=== PATIENT | male | born 1955 | race African-American/Black ===

== ENCOUNTER 2021-06-05 14:54 | Inpatient (IN) | payer MEDICAID ==
[~2021-06-05] VITALS: Ht 167.6 cm; Wt 47.5 kg
[2021-06-05 15:31] LABS: GLUCOMETER DEV NAME(LOC) ERT.5; GLUCOSE,POINT OF CARE 470 MG/DL (70-110)
[2021-06-05 16:16] LABS: BASOPHILS % (AUTO) 0.2 % (0.0-2.0); EOSINOPHILS % (AUTO) 0 % (1.0-6.0); HEMATOCRIT 38.8 % (41-53); HEMOGLOBIN 13.2 g/dL (13.5-17.5); LYMPHOCYTES # (AUTO) 0.2 K/uL (1.0-4.8); LYMPHOCYTES % (AUTO) 2.3 % (22.0-44.0); MEAN CORPUSCULAR HEMOGLOBIN 31.9 pg (26.0-34.0); MEAN CORPUSCULAR VOLUME 94 fL (80-100); MONOCYTES # (AUTO) 0.3 K/uL (0.1-1.0); MONOCYTES % (AUTO) 3.3 % (2.0-9.0); NEUTROPHILS # (AUTO) 7.3 K/uL (1.8-7.7); PLATELET COUNT (AUTO) 258 K/uL (150-450); RED BLOOD CELL COUNT(AUTO) 4.14 MIL/uL (4.50-5.90); RED CELL DISTRIBUTION WIDTH 12.9 % (11.5-14.5)
[2021-06-05 16:29] LABS: NEUTROPHILS % (AUTO) 94.2 % (40.0-70.0)
[2021-06-05] MEDS ORDERED: SODIUM CHLORIDE 0.9% 1,350 ML IV ONE (16:30)
[2021-06-05] MEDS ORDERED: ACETAMINOPHEN 325 MG TABLET PO ONE (16:30)
[2021-06-05 16:36] LABS: GLUCOMETER DEV NAME(LOC) ERT.5; GLUCOSE,POINT OF CARE 414 MG/DL (70-110)
[2021-06-05 16:37] LABS: COVID AG,FIA SOURCE NASAL SWAB
[2021-06-05 16:41] LABS: ALANINE AMINOTRANSFERASE 105 U/L (12-78); ALBUMIN 2.6 g/dL (3.4-5.0); ALKALINE PHOSPHATASE 130 U/L (46-116); ANION GAP 11 mmol/L (8-16); ASPARTATE AMINOTRANSFERASE 193 U/L (15-37); BILIRUBIN,TOTAL 1.1 mg/dL (0.1-1.0); CALCIUM, TOTAL 8.6 mg/dL (8.8-10.5); CARBON DIOXIDE 27 mmol/L (22-29); CHLORIDE 92 mmol/L (98-107); CREATININE 1.02 mg/dL (0.60-1.30); GLOMERULAR FILTR. RATE CALC > 60 mL/min (>60); POTASSIUM 3.5 mmol/L (3.5-5.1); SODIUM SERUM 130 mmol/L (136-145); TOTAL PROTEIN, SERUM 7.3 g/dL (6.4-8.2); UREA NITROGEN, BLOOD 22 mg/dL (7-18)
[2021-06-05 16:43] LABS: GLUCOSE,RANDOM 472 mg/dL (70-110)
[2021-06-05 16:43] LABS: APPEARANCE,URINE CLEAR (CLEAR); BILIRUBIN,URINE NEGATIVE (NEGATIVE); GLUCOSE, URINE (UA) >=1000 mg/dL (NEGATIVE); KETONES,URINE 40 mg/dL (NEGATIVE); LEUKOCYTE ESTERASE ,URINE NEGATIVE (NEGATIVE); NITRATE,URINE NEGATIVE (NEGATIVE); OCCULT BLOOD,URINE TRACE (NEGATIVE); PROTEIN,URINE POS 1+ (NEGATIVE)
[2021-06-05 17:05] LABS: LACTIC ACID 2.2 mmol/L (0.4-2.0)
[2021-06-05] MEDS ORDERED: INSULIN REGULAR, HUMAN 100 UNITS/ML IVP ONE ×2 (18:00→19:30)
[2021-06-05 18:11] LABS: GLUCOSE,POINT OF CARE 420 MG/DL (70-110)
[2021-06-05 19:06] LABS: GLUCOMETER DEV NAME(LOC) ERT.5; GLUCOSE,POINT OF CARE 369 MG/DL (70-110)
[2021-06-05] MEDS ORDERED: CefTRIAXone 1 GM/DEXTROSE 50 ML IV ONE (19:30)
[2021-06-05] MEDS ORDERED: DOXYCYCLINE HYCLATE 100 MG in DEXTROSE 5%-WATER 100 ML IV ONE (19:30)
[2021-06-05 19:32] LABS: INFLUENZA TYPE A NEGATIVE FOR TYPE A (NEGATIVE); INFLUENZA TYPE B NEGATIVE FOR TYPE B (NEGATIVE)
[2021-06-05 20:00] LABS: BACTERIA,URINE None Seen /HPF (None Seen); RBC,URINE 0-2 /HPF (0-2)
[2021-06-05] MEDS ORDERED: ALBUTEROL SULFATE HFA 90 MCG/PUFF 8 GM INHALER IH PRN (20:15)
[2021-06-05] MEDS ORDERED: BENZONATATE 100 MG CAPSULE PO PRN (20:15)
[2021-06-05] MEDS ORDERED: DEXTROSE 50%-WATER 25 GM/50 ML SYRINGE IVP PRN (20:15)
[2021-06-05] MEDS ORDERED: SODIUM CHLORIDE 0.9% 1,000 ML IV ONE (20:15)
[2021-06-05] MEDS ORDERED: ONDANSETRON HCL 4 MG/2 ML VIAL IVP PRN (20:30)
[2021-06-05] MEDS ORDERED: OxyCODONE HCL/ACETAMINOPHEN 5-325 MG TABLET PO PRN (20:30)
[2021-06-05 20:40] LABS: C-REACTIVE PROTEIN QUANT 14.41 mg/dL (0.00-0.30)
[2021-06-05 20:45] LABS: GLUCOMETER DEV NAME(LOC) ERT.5; GLUCOSE,POINT OF CARE 334 MG/DL (70-110)
[2021-06-05] MEDS: INSULIN GLARGINE,HUM.REC.ANLOG 100 UNITS/ML SQ SCH (22:14)
[2021-06-05] MEDS: INSULIN LISPRO 100 UNITS/ML SQ PRN (22:14)
[2021-06-05] MEDS: DOCUSATE SODIUM 100 MG CAPSULE PO SCH (22:21)
[2021-06-06] MEDS: HEPARIN SODIUM,PORCINE 5,000 UNITS/ML VIAL SQ SCH ×3 (00:01→17:00)
[2021-06-06] MEDS: PIPERACILLIN/TAZO 3.375 GM/D5W 50 ML IV SCH ×4 (00:01→21:31)
[2021-06-06 05:16] LABS: GLUCOMETER DEV NAME(LOC) ERT.5; GLUCOSE,POINT OF CARE 63 MG/DL (70-110)
[2021-06-06 06:21] LABS: GLUCOMETER DEV NAME(LOC) ERT.5; GLUCOSE,POINT OF CARE 177 MG/DL (70-110)
[2021-06-06 06:52] LABS: ALANINE AMINOTRANSFERASE 89 U/L (12-78); ALKALINE PHOSPHATASE 106 U/L (46-116); ANION GAP 9 mmol/L (8-16); ASPARTATE AMINOTRANSFERASE 120 U/L (15-37); BILIRUBIN,TOTAL 0.4 mg/dL (0.1-1.0); CALCIUM, TOTAL 7.7 mg/dL (8.8-10.5); CARBON DIOXIDE 30 mmol/L (22-29); CHLORIDE 103 mmol/L (98-107); GLOMERULAR FILTR. RATE CALC > 60 mL/min (>60); GLUCOSE,RANDOM 161 mg/dL (70-110); SODIUM SERUM 142 mmol/L (136-145); UREA NITROGEN, BLOOD 14 mg/dL (7-18)
[2021-06-06 06:54] LABS: POTASSIUM 2.9 mmol/L (3.5-5.1)
[2021-06-06] MEDS ORDERED: POTASSIUM CHLORIDE 10% 40 MEQ/30 ML LIQUID UDCUP PO PRN ×2 (07:15)
[2021-06-06] MEDS ORDERED: POTASSIUM CHL 10 MEQ/WATER 50 ML IV PRN ×2 (07:15→11:15)
[2021-06-06] MEDS ORDERED: POTASSIUM CHLORIDE 20 MEQ ER TABLET PO PRN ×3 (07:15→11:15)
[2021-06-06] MEDS: POTASSIUM CHL 10 MEQ/WATER 50 ML IV PRN ×4 (07:57→11:08)
[2021-06-06 08:01] LABS: GLUCOMETER DEV NAME(LOC) ERT.5; GLUCOSE,POINT OF CARE 171 MG/DL (70-110)
[2021-06-06] MEDS: FAMOTIDINE 20 MG TABLET PO SCH (08:50)
[2021-06-06] MEDS: DOCUSATE SODIUM 100 MG CAPSULE PO SCH ×2 (08:50→19:09)
[2021-06-06] MEDS: MULTIVITAMINS WITH MINERALS, THERAPEUTIC TABLET PO SCH (08:51)
[2021-06-06 12:12] LABS: GLUCOSE,POINT OF CARE 195 MG/DL (70-110)
[2021-06-06] MEDS: INSULIN LISPRO 100 UNITS/ML SQ PRN (17:09)
[2021-06-06 17:28] VITALS: BP 142/89
[2021-06-06] MEDS ORDERED: PNEUMOCOCCAL VACCINE POLYVALENT 0.5 ML VIAL [PPSV23] IM. ONE (18:15)
[2021-06-06] MEDS ORDERED: INFLUENZA VIRUS VACCINE QVS 2021-22 (6MO+)/PF 60 MCG/0.5 ML SYRINGE IM. ONE (18:15)
[2021-06-06 20:22] LABS: GLUCOMETER DEV NAME(LOC) 5N.1C; GLUCOSE,POINT OF CARE 250 MG/DL (70-110)
[2021-06-06 20:45] VITALS: BP 165/87
[2021-06-06] MEDS: ACETAMINOPHEN 325 MG TABLET PO PRN (21:31)
[2021-06-06] MEDS: INSULIN GLARGINE,HUM.REC.ANLOG 100 UNITS/ML SQ SCH (21:34)
[2021-06-06 23:31] LABS: GLUCOMETER DEV NAME(LOC) 5S.1; GLUCOSE,POINT OF CARE 117 MG/DL (70-110)
[2021-06-07] MEDS: PIPERACILLIN/TAZO 3.375 GM/D5W 50 ML IV SCH ×4 (02:57→22:06)
[2021-06-07 04:38] VITALS: BP 157/81
[2021-06-07 06:41] LABS: GLUCOMETER DEV NAME(LOC) 5N.1C; GLUCOSE,POINT OF CARE 94 MG/DL (70-110)
[2021-06-07 07:28] VITALS: BP 154/82
[2021-06-07] MEDS: HEPARIN SODIUM,PORCINE 5,000 UNITS/ML VIAL SQ SCH ×5 (08:00→23:45)
[2021-06-07] MEDS: MULTIVITAMINS WITH MINERALS, THERAPEUTIC TABLET PO SCH (08:01)
[2021-06-07] MEDS: FAMOTIDINE 20 MG TABLET PO SCH (08:01)
[2021-06-07] MEDS: DOCUSATE SODIUM 100 MG CAPSULE PO SCH ×2 (08:03→21:00)
[2021-06-07 11:33] VITALS: BP 148/82
[2021-06-07] MEDS: INSULIN LISPRO 100 UNITS/ML SQ PRN ×2 (13:36→22:09)
[2021-06-07 15:02] VITALS: BP 173/72
[2021-06-07 15:41] LABS: GLUCOMETER DEV NAME(LOC) 5S.1; GLUCOSE,POINT OF CARE 371 MG/DL (70-110)
[2021-06-07 17:11] LABS: GLUCOMETER DEV NAME(LOC) 5S.1; GLUCOSE,POINT OF CARE 100 MG/DL (70-110)
[2021-06-07 20:42] VITALS: BP 146/80
[2021-06-07] MEDS: INSULIN GLARGINE,HUM.REC.ANLOG 100 UNITS/ML SQ SCH (22:10)
[2021-06-07 22:36] LABS: GLUCOMETER DEV NAME(LOC) 5S.1; GLUCOSE,POINT OF CARE 195 MG/DL (70-110)
[2021-06-07] MEDS: ACETAMINOPHEN 325 MG TABLET PO PRN (23:47)
[2021-06-08 00:20] VITALS: BP 165/80
[2021-06-08] MEDS: PIPERACILLIN/TAZO 3.375 GM/D5W 50 ML IV SCH ×4 (03:06→21:47)
[2021-06-08 04:38] VITALS: BP 145/80
[2021-06-08 07:50] VITALS: BP 142/70
[2021-06-08] MEDS: MULTIVITAMINS WITH MINERALS, THERAPEUTIC TABLET PO SCH (08:54)
[2021-06-08] MEDS: HEPARIN SODIUM,PORCINE 5,000 UNITS/ML VIAL SQ SCH ×2 (08:54→16:48)
[2021-06-08] MEDS: DOCUSATE SODIUM 100 MG CAPSULE PO SCH ×2 (08:54→21:47)
[2021-06-08] MEDS: FAMOTIDINE 20 MG TABLET PO SCH (08:54)
[2021-06-08] MEDS: INSULIN GLARGINE,HUM.REC.ANLOG 100 UNITS/ML SQ SCH ×2 (08:55→21:48)
[2021-06-08 11:19] VITALS: BP 152/76
[2021-06-08] MEDS: INSULIN LISPRO 100 UNITS/ML SQ PRN ×2 (12:23→17:59)
[2021-06-08 15:42] VITALS: BP 148/82
[2021-06-08 21:01] LABS: GLUCOMETER DEV NAME(LOC) 5S.2B; GLUCOSE,POINT OF CARE 174 MG/DL (70-110)
[2021-06-08 21:01] LABS: GLUCOMETER DEV NAME(LOC) 5S.2B; GLUCOSE,POINT OF CARE 212 MG/DL (70-110)
[2021-06-08 21:01] LABS: GLUCOMETER DEV NAME(LOC) 5S.2B; GLUCOSE,POINT OF CARE 79 MG/DL (70-110)
[2021-06-08 21:41] LABS: GLUCOMETER DEV NAME(LOC) 5S.1; GLUCOSE,POINT OF CARE 118 MG/DL (70-110)
[2021-06-09 00:23] VITALS: BP 146/81
[2021-06-09] MEDS: PIPERACILLIN/TAZO 3.375 GM/D5W 50 ML IV SCH ×3 (01:16→13:46)
[2021-06-09] MEDS: HEPARIN SODIUM,PORCINE 5,000 UNITS/ML VIAL SQ SCH ×3 (01:16→15:05)
[2021-06-09 06:12] VITALS: BP 144/72
[2021-06-09 06:31] LABS: GLUCOMETER DEV NAME(LOC) 5S.2B; GLUCOSE,POINT OF CARE 58 MG/DL (70-110)
[2021-06-09 06:51] LABS: GLUCOMETER DEV NAME(LOC) 5S.2B; GLUCOSE,POINT OF CARE 87 MG/DL (70-110)
[2021-06-09 08:30] VITALS: BP 153/87
[2021-06-09] MEDS: FAMOTIDINE 20 MG TABLET PO SCH (08:53)
[2021-06-09] MEDS: MULTIVITAMINS WITH MINERALS, THERAPEUTIC TABLET PO SCH (08:53)
[2021-06-09] MEDS: INSULIN GLARGINE,HUM.REC.ANLOG 100 UNITS/ML SQ SCH (08:53)
[2021-06-09] MEDS: DOCUSATE SODIUM 100 MG CAPSULE PO SCH (08:53)
[2021-06-09 10:55] VITALS: BP 145/75
[2021-06-09] MEDS: INSULIN LISPRO 100 UNITS/ML SQ PRN (12:51)
[2021-06-09 14:06] LABS: GLUCOMETER DEV NAME(LOC) 5S.2B; GLUCOSE,POINT OF CARE 356 MG/DL (70-110)
[2021-06-09 16:02] VITALS: BP 142/79
[2021-06-09] MEDS ORDERED: INSLAN SQ (16:26)
[2021-06-09] MEDS ORDERED: INSULIN GLARGINE,HUM.REC.ANLOG 100 UNITS/ML SQ SCH (21:00)
== END 2021-06-09 17:25 | disposition home or self-care (01) | DRG 137 ==
LOC: EMS 14:59 → 5N 06-06 14:44
PROVIDERS: ADMIT Internal Medicine; ATTEND Internal Medicine
DX: U07.1 COVID-19 (principal); J69.0 Pneumonitis due to inhalation of food and vomit; E43 Unspecified severe protein-calorie malnutrition; E86.0 Dehydration; R74.01 Elevation of levels of liver transaminase levels; E87.1 Hypo-osmolality and hyponatremia; E11.65 Type 2 diabetes mellitus with hyperglycemia; Z59.00 Homelessness unspecified; Z79.4 Long term (current) use of insulin; Z28.21 Immunization not carried out because of patient refusal; Z68.1 Body mass index [BMI] 19.9 or less, adult
CPT/HCPCS: 71045; 80053; 81001; 82009; 82962; 83605; 84132; 85025; 85379; 86140; 87040; 87804; 92610; 93005; 97530; 99285; J0696; J1644; J1815; J2543; J3480; J3490; J7030; J7060; 36415-L1; 36415-TC; U0003